=== PATIENT | female | born 1955 | race Caucasian/White ===

== ENCOUNTER → 2023-06-22 06:49 | Outpatient (REF) | payer MEDICARE, SELFPAY | LOC: MRI 3T 06:49 | PROVIDERS: ATTENDING PHYSICIAN Internal Medicine Gastroenterology; FAMILY PHYSICIAN Family Medicine | DX: D64.9 Anemia, unspecified (principal) | CPT/HCPCS: 72197; 74183; A9575 ==

== ENCOUNTER → 2023-09-24 13:44 | Outpatient (REF) | payer MEDICARE, SELFPAY | LOC: HWRCS 13:44 | PROVIDERS: ATTENDING PHYSICIAN Internal Medicine Cardiovascular Disease; FAMILY PHYSICIAN Family Medicine | DX: I34.1 Nonrheumatic mitral (valve) prolapse (principal) | CPT/HCPCS: 93306 ==

== ENCOUNTER → 2023-10-23 06:36 | Outpatient (REF) | payer MEDICARE, SELFPAY | LOC: RSP 06:36 | PROVIDERS: ATTENDING PHYSICIAN Family Medicine | DX: R93.89 Abnormal findings on diagnostic imaging of other specified body structures (principal); Z77.22 Contact with and (suspected) exposure to environmental tobacco smoke (acute) (chronic); R91.8 Other nonspecific abnormal finding of lung field | CPT/HCPCS: 94727; 94729; 88738; 94010 ==

== ENCOUNTER → 2024-05-19 07:34 | Outpatient (REF) | payer MEDICARE, SELFPAY | LOC: HWWDC 07:34 | PROVIDERS: ATTENDING PHYSICIAN Family Medicine; REFERRING PHYSICIAN Obstetrics & Gynecology | DX: Z12.31 Encounter for screening mammogram for malignant neoplasm of breast (principal) | CPT/HCPCS: 77063; 77067 ==

== ENCOUNTER → 2025-05-05 07:37 | Outpatient (REF) | payer MEDICARE, SELFPAY | LOC: RSP 07:37 | PROVIDERS: ATTENDING PHYSICIAN Family Medicine | DX: R06.89 Other abnormalities of breathing (principal) | CPT/HCPCS: 88738; 94010; 94727; 94729 ==